=== PATIENT | male | born 1985 | race African-American/Black ===

== ENCOUNTER 2022-09-13 13:00 | Emergency (ER) | payer OTHER ==
[~2022-09-13] VITALS: Ht 167.6 cm; Wt 81.6 kg
[2022-09-13 13:05] VITALS: TEMP 98.1
[2022-09-13 13:48] LABS: PLATELET COUNT 273 K/uL (142-355)
[2022-09-13 13:56] LABS: POTASSIUM 4.7 mmol/L (3.6-5.2); SODIUM 137 mmol/L (136-145)
[2022-09-13 15:14] VITALS: BP 111/60
== END 2022-09-13 15:14 | disposition home or self-care (01) ==
LOC: ED 13:00
PROVIDERS: Emergency Medicine Emergency Medical Services
DX: R09.1 Pleurisy (principal); J40 Bronchitis, not specified as acute or chronic; D68.8 Other specified coagulation defects
CPT/HCPCS: 36415; 80053; 83735; 84484; 85027; 85379; 85610; 93005; 96360; 96361; 99284

== ENCOUNTER 2023-03-12 14:18 | Outpatient (CLI) | payer OTHER | END 2023-03-12 19:23 | disposition home or self-care (01) | LOC: US 14:18 | PROVIDERS: ATTEND Nurse Practitioner Family | DX: N63.0 Unspecified lump in unspecified breast (principal) ==